=== PATIENT | male | born 1945 | race Caucasian/White ===

== ENCOUNTER 2023-09-20 17:36 | Outpatient (CLI) | payer MEDICARE, BC, SELFPAY | END 2023-09-20 17:37 | disposition home or self-care (01) | LOC: AMB 09-26 10:30 | PROVIDERS: PCP Family Medicine; Visit Provider Emergency Medicine Emergency Medical Services | DX: S79.912A Unspecified injury of left hip, initial encounter (principal); W01.0XXA Fall on same level from slipping, tripping and stumbling without subsequent striking against object, initial encounter; Y92.096 Garden or yard of other non-institutional residence as the place of occurrence of the external cause | CPT/HCPCS: A0425; A0427 ==